=== PATIENT | female | born 1985 | race Two or more races ===

== ENCOUNTER 2022-08-13 05:47 | Day surgery (SDC) | payer OTHER ==
[~2022-08-13 05:47] MED LIST: PROTONIX40 MG PO
== END 2022-08-13 11:20 | disposition home or self-care (01) ==
LOC: CIR.AMB 05:47
PROVIDERS: ATTEND Orthopaedic Surgery
DX: M75.111 Incomplete rotator cuff tear or rupture of right shoulder, not specified as traumatic (principal); M25.811 Other specified joint disorders, right shoulder; Z20.822 Contact with and (suspected) exposure to COVID-19; Z91.013 Allergy to seafood; Z88.6 Allergy status to analgesic agent; Z86.16 Personal history of COVID-19

== ENCOUNTER 2024-08-17 05:30 | Day surgery (SDC) | payer OTHER ==
[2024-08-09 08:43] VITALS: BP 121/84
[2024-08-09 09:06] LABS: PH,URINE 6.5 (5.0-8.0); URINE APPEARANCE Clear; URINE BILIRRUBIN Negative (NEGATIVE); URINE BLOOD NHT; URINE COLOR Yellow; URINE GLUCOSE Negative (NEGATIVE); URINE KETONE Negative (NEGATIVE); URINE LEUKOCYTE Negative; URINE NITRATE Negative; URINE PROTEIN Negative (NEGATIVE); URINE UROBILINOGEN 0.2 E.U./dl
[2024-08-09 09:11] LABS: HEMATOCRIT 43.8 % (36.0-45.00); HEMOGLOBIN 14.3 g/dL (12.0-15.00); MEAN CELL VOLUME 82.8 fL (80.00-100.00); MEAN CORPUSCULAR HEMOGLOBIN 27.1 pg (27.00-32.0); MEAN CORPUSCULAR HGB CONC 32.7 g/dl (32.0-36.0); PLATELET COUNT 270 K/uL (150-450); RED BLOOD COUNT 5.29 M/uL (4.00-6.00); RED CELL DISTRIBUTION WIDTH 14.3 % (11.5-14.5)
[2024-08-09 09:28] LABS: PARTIAL THROMBOPLASTIN TIME 29.7 SECONDS (22.0-34.0); PROTHROMBIN TIME 10.9 SECONDS (9.0-11.5)
[2024-08-09 09:42] LABS: URINE BACTERIA 1058.7 uL (0.0-1933); URINE EPITHELIAL CELLS 53.8 uL (0.0-38.8); URINE WBC 13.2 uL (0.0-23.2)
[2024-08-09 09:43] LABS: URINE CAST 0.14 uL (0.0-1.40)
[2024-08-09 10:28] LABS: ALBUMIN 3.9 gm/dL (3.4-5.0); BILIRUBIN TOTAL 0.5 mg/dL (0.3-1.2); CALCIUM 9.5 mg/dL (8.5-10.1); CREATININE SERUM 0.79 mg/dL (0.55-1.02); GFR 80.2; GLOBULINA 4.2 G/DL (2.4-3.5); POTASSIUM 4.5 mEq/L (3.5-5.1); TOTAL PROTEIN 8.1 gm/dL (6.4-8.2)
[~2024-08-17] VITALS: Ht 175.3 cm; Wt 70.8 kg
[~2024-08-17 05:30] MED LIST changes: +PEPCID AC20 MG PO
[2024-08-17] MEDS ORDERED: CEFAZOLIN SODIUM 1,000 MG VIAL IV ONE (07:15)
[2024-08-17] MEDS ORDERED: SUGAMMADEX SODIUM 200 MG/2 ML VIAL IV ONE (07:15)
[2024-08-17] MEDS ORDERED: LIDOCAINE HCL 1%/EPINEPHRINE 20ML VIAL IJ ONE (07:15)
[2024-08-17] MEDS ORDERED: BUPIVACAINE HCL 30 ML VIAL IJ ONE (07:15)
== END 2024-08-17 11:45 | disposition home or self-care (01) ==
LOC: CIR.AMB 05:30
PROVIDERS: ATTEND Orthopaedic Surgery
DX: M75.112 Incomplete rotator cuff tear or rupture of left shoulder, not specified as traumatic (principal); M75.22 Bicipital tendinitis, left shoulder; M24.112 Other articular cartilage disorders, left shoulder; M75.02 Adhesive capsulitis of left shoulder; Z91.013 Allergy to seafood; Z88.6 Allergy status to analgesic agent